=== PATIENT | male | born 1970 | race Caucasian/White ===

== ENCOUNTER 2021-12-11 09:03 | Outpatient (CLI) | payer OTHER | END 2021-12-11 09:04 | disposition home or self-care (01) | LOC: CSHCT 09:03 | PROVIDERS: ATTEND Internal Medicine Critical Care Medicine | DX: R06.09 Other forms of dyspnea (principal); I26.99 Other pulmonary embolism without acute cor pulmonale; K76.0 Fatty (change of) liver, not elsewhere classified | CPT/HCPCS: 71275 ==